=== PATIENT | male | born 1950 | race Two or more races ===

== ENCOUNTER 2017-02-17 10:24 | Emergency (ER) | payer MEDICARE ==
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
[2017-02-17] MEDS ORDERED: OXYCODONE HCL IR 5 MG TABLET PO ONE (12:43)
[2017-02-17 13:06] VITALS: BP 160/81
== END 2017-02-17 13:05 | disposition home or self-care (01) ==
LOC: ER 10:24
DX: M25.551 Pain in right hip (principal); W10.9XXA Fall (on) (from) unspecified stairs and steps, initial encounter; E11.9 Type 2 diabetes mellitus without complications; I10 Essential (primary) hypertension; I25.2 Old myocardial infarction; F17.200 Nicotine dependence, unspecified, uncomplicated; Z98.890 Other specified postprocedural states; Z87.81 Personal history of (healed) traumatic fracture
CPT/HCPCS: 99283; 73502; A9270